=== PATIENT | male | born 1980 | race Caucasian/White ===

== ENCOUNTER 2024-03-15 22:22 | Emergency (ER) | payer SELFPAY ==
[2024-03-15] VITALS (10 sets, daily range): BP systolic 120–184; BP diastolic 64–110; PULSE 110–133; RESP 18–27; TEMP 36.8–37.3; O2SAT 92–99
--- NOTE | ~2024-03-15 | XR_ITS ---
EXAMINATION: XR chest 1V portable DATE: 03/15/2024 23:05 INDICATION: Dyspnea TECHNIQUE: frontal view of the chest was obtained. COMPARISON: None FINDINGS: The lungs are clear with no focal airspace opacities, pulmonary edema, pleural effusion or pneumothor ax. The cardiomediastinal silhouette is normal. Visualized bones and soft tissues are unremarkable. IMPRESSION: 1. No acute cardiopulmonary disease. Reviewed, dictated and finalized at location A.
--- NOTE | 2024-03-15 22:38 | ECG_ITS ---
Test Date: 2024-03-15 22:53:15 Measurements Intervals [place] Rate: 120 P: 59 PA: 166 QRS: 75 QRSD: 104 T: 37 QT: 348 QTc: 494 Interpretive Statements SINUS TACHYCARDIA NONSPECIFIC T-WAVE ABNORMALITY ABNORMAL RHYTHM ECG No previous ECG available for comparison Electronically Signed On 03-16-2024 13:02:54 CDT by Aidan Andrews M.D.
--- NOTE | 2024-03-15 22:40 | PC.NURSE ---
pt to ed with police presence. pt is in bilateral hand cuffs. pt is belligerent and uncooperative with staff. pt trying to harm himself, staff, ems, police. pt began yelling at staff, hitting, kicking, trying to elope. per edp dr. fishman pt to recieve 500mg IM of ketamine. pt received 500mg of ketamine IM by DARLENE Sandra in bilateral legs. pt began to wrestle with staff, ems, hospital security, and police. After ketamine administration this rn was able to obtain a new iv, blood work, ekg, straight catheterization per edp dr. fishman. pt began thrashing violent and attempting to hit himself in the head while screaming. Ativan 2mg IV push was verbal ordered by edp dr. fishman. pt began to become more comfortable and stopped yelling. bilateral handcuffs on wrists along with bilateral cuffs on ankles were applied by police. pt started shouting. pt then shaking head left to right. bilateral chest rise and fall were noted. pt heart rate continued to be in the sinus tach, pulse oxygen stayed within normal limits, respirations were wnl, blood pressure were hypertensive. edp dr. fishman aware.
[2024-03-15] MEDS: KETAMINE HCL (*CRX) 500 MG/10 ML VIAL IM (22:42)
--- NOTE | 2024-03-15 22:49 | PC.NURSE ---
Dr. Little at bedside. Pt being held to stretcher by two police officers, a cigarette packer, two security guards, and multiple nurses. Dr. Little gives verbal order for 500mg ketamine. Verified with multiple RN's in the room and given IM at 2242.
[2024-03-15] MEDS: SODIUM CHLORIDE 0.9% IV 3,000 ML 999 ML IV CONT (23:04)
[2024-03-15] MEDS: LORazepam INJ (*CRX) 2 MG/ML VIAL IV PUSH (23:11)
[2024-03-15 23:13] LABS: Basophils Absolute Auto 0.1 K/mm3 (0.0-0.1); Basophils Percent Auto 0.8 % (0.2-1.2); Eosinophils Absolute Auto 0.1 K/mm3 (0-0.3); Eosinophils Percent Auto 0.7 % (0-4.4); Hematocrit 44.3 % (42.0-52.0); Hemoglobin 15.6 g/dL (14.0-18.0); Immature Granulocyte Absolute 0.08 K/mm3 (0.00-0.031); Immature Granulocyte Percent A 0.7 % (0-0.5); Lymphocytes Absolute Auto 3.04 K/mm3 (0.9-3.2); Lymphocytes Percent Auto 25.4 % (18.3-44.2); Mean Corpuscular HGB Conc 35.2 g/dl (32-36); Mean Corpuscular Hemoglobin 32.4 pg (26-34); Mean Corpuscular Volume 91.9 fl (80-100); Mean Platelet Volume 9.1 fl (7.4-10.4); Monocytes Percent Auto 8.5 % (2.6-8.5); Neutrophils Absolute Auto 7.7 K/mm3 (1.3-6.7); Neutrophils Percent Auto 63.9 % (45.5-73.1); Platelet Count Result 345 k/mm3 (150-375); Red Blood Count 4.82 M/mm3 (4.6-6.20); Red Cell Distribution Width 12.8 % (11.5-14.5)
[2024-03-15 23:17] LABS: Appearance Urine Clear (Clear); Bacteria Urine None Seen /hpf; Bilirubin Urine Negative (Negative); Blood Urine Negative (Negative); Color Urine Yellow (Yellow); Glucose Urine UA Negative (Negative); Ketones Urine Trace mg/dL (Negative); Leukocyte Esterase Ur Negative LEU/UL (Negative); Nitrate Urine Negative (Negative); Non Pathogenic Casts 0-2; Protein Urine 2+ mg/dL (Negative); Specific Grav Ur 1.023 (1.001-1.035); Squamous Epithelial Cell Urine None Seen /hpf (Few); WBC Urine 0-5 /hpf (0-3); pH Urine 6.5 (5.0-9.0)
[2024-03-15 23:24] LABS: Lactic Acid Reflex 5.1 mmol/L (0.7-2.0)
[2024-03-15 23:26] LABS: Albumin Level 5.1 g/dL (3.5-5.1); Alkaline Phosphatase 80 U/L (38-126); Anion Gap 17 mmol/L (4-12); Aspartate Amino Transferase 56 U/L (17-59); Bilirubin,Total 0.6 mg/dL (0.2-1.3); Blood Urea Nitrogen 19 mg/dL (9-20); Calcium 9.6 mg/dL (8.4-10.2); Carbon Dioxide 19 mmol/L (22-30); Chloride 107 mmol/L (98-107); Creatine Kinase 128 U/L (55-170); Estimated CRCL calculation 101 ml/min; Estimated Glomerular Filt Rate > 60; Glucose 136 mg/dL (65-110); Lipase 165 U/L (23-300); Magnesium 2.1 mg/dL (1.6-2.3); Phosphorus 1.6 mg/dL (2.5-4.5); Potassium 3.8 mmol/L (3.4-5.0); Sodium 143 mmol/L (137-145)
[2024-03-15 23:30] LABS: Alanine Aminotransferase 68 U/L (6-50)
[2024-03-15 23:34] LABS: Troponin I < 0.012 ng/mL (0.000-0.034)
[2024-03-16] VITALS (7 sets, daily range): BP systolic 144–180; BP diastolic 94–118; PULSE 110–123; RESP 20–30; TEMP 36.8–37; O2SAT 94–98
[2024-03-16 00:10] LABS: Add Urine Microscopic? YES
[2024-03-16 00:15] LABS: Lactic Acid Reflex 1.8 mmol/L (0.7-2.0)
[2024-03-16 00:27] LABS: Amphetamine Screen Urine Negative (Negative); Barbiturate Screen Urine Negative (Negative); Benzodiazepines Screen Urine Negative (Negative); Cannabinoid Screen Urine Negative (Negative); Cocaine Screen Urine Negative (Negative); Methadone Screen Urine Negative (Negative); Opiate Screen Urine Negative (Negative); Phencyclidine Screen Urine Negative (Negative)
[2024-03-16 00:48] LABS: Ethanol < 10 mg/dL (<10)
--- NOTE | 2024-03-16 01:19 | PC.NURSE ---
per edp dr. fishman lab to re-run a urine drug screen and re- run an ethanol level.
[2024-03-16 01:25] LABS: Ethanol < 10 mg/dL (<10)
--- NOTE | 2024-03-16 01:36 | PC.NURSE ---
upon second catheterization pt is still belligerent. pt answering orientation questions incorrectly. pt ao x 1. pt still actively admitting to being intoxicated.
--- NOTE | 2024-03-16 01:40 | ECG_ITS ---
Test Date: 2024-03-16 01:11:12 Measurements Intervals [place] Rate: 117 P: 33 FL: 177 QRS: 62 QRSD: 90 T: 14 QT: 342 QTc: 478 Interpretive Statements SINUS TACHYCARDIA Nonspecific ST wave abnormalities Compared to ECG 03/15/2024 22:53:15 no change compared to prior EKG Electronically Signed On 03-16-2024 13:03:49 CDT by Aidan Andrews M.D.
[2024-03-16] MEDS: POTASSIUM/PHOSPHORUS/SODIUM 1.5 GM PACKET 1 PACKET PO (01:45)
--- NOTE | 2024-03-16 01:48 | ED.GENADULT ---
HPI - General Adult General Chief complaint: Shortness of Breath/Dyspnea Stated complaint: dyspnea Time Seen by Provider: 03/15/24 22:38 History of Present Illness HPI narrative: This is a 43-year-old male presenting in police custody for agitated behavior. The patient was at a wedding and was reportedly drinking. He had become aggressive with other guess the wedding in the police recalled. Patient became irate and got involved in physical altercation with police. While in the back of the police car in handcuffs he started to become diaphoretic red and yelling that he could not breathe. He was then brought to the hospital and had to be restrained by security staff due to aggressive and violent behavior. Related Data Allergies Allergy/AdvReac Type Severity Reaction Status Date / Time No Known Allergies Allergy Verified 03/15/24 22:26 Exam Narrative: APPEARANCE: patient is flushed diaphoretic, he is being restrained by for staff members. Head: atraumatic. EYES: EOMI, NOSE: Atraumatic NECK: Trachea midline RESPIRATORY: Tachypneic, clear lung sounds CARDIOVASCULAR: tachycardic, diaphoretic ABDOMINAL: Non-distended MUSCULOSKELETAl: No obvious deformities NEURO: Alert. Moving 4/4 extremities SKIN:: Warm, dry. Normal color PSYCHIATRIC: Enraged Course Vital Signs Vital signs: Vital Signs Pulse Rate 110 H 03/15/24 22:25 Respiratory Rate 18 03/15/24 22:25 Blood Pressure 171/103 H 03/15/24 22:25 Pulse Oximetry 97 03/15/24 22:25 Temperature 98.6 F 03/16/24 00:40 Pulse Rate 123 H 03/16/24 01:40 Respiratory Rate 22 H 03/16/24 01:40 Blood Pressure 176/112 H 03/16/24 01:40 Pulse Oximetry 98 03/16/24 01:40 Oxygen Delivery Room Air 03/15/24 22:26 Medical Decision Making [facility] Narrative Medical decision making narrative: -Course: 43-year-old male presenting in agitated delirium. Given IM ketamine for immediate sedation for protection of the patient and staff. the patient regained consciousness and was still verbally/physically aggressive. He was kept in handcuffs by police and given benzodiazepines. Patient required multiple rounds of sedatives for aggressive violent behavior. Patient's workup was negative for alcohol and drugs tested by urine drug screen. This was repeated as the patient admitted to drinking large amounts of alcohol tonight and his behavior was consistent with sympathomimetic toxidrome. Repeats still came back negative. This does full out synthetic drugs which do not show up on our UDS. Interestingly the repeat urine drug screen was negative for benzodiazepines which we administered to the patient on arrival. On re-evaluation the patient's vital signs has improved. He is now more calm. AOx3. Still slightly tachycardic but much improved.. Patient will be discharged into police custody. -DDX includes but is not limited to: Agitated delirium, alcohol intoxication, sympathomimetic overdose -Co-morbidities complicating care: history of cocaine and amphetamine abuse, alcohol abuse -Independent interpretation of studies: Labs reviewed chest x-ray normal Independent EKG interpretation: Rhythm [sinus], Rate [117], [place] -[normal], [place] -[normal], QRS [narrow], QTC [normal], T waves -[negative for concerning inversions], ST Segments - [Negative for concerning elevations] Final interpretations: Sinus tachycardia -Shared decision making / Disposition:Discharged into police custody Vital Signs Vital Signs: Vital Signs Pulse Rate 110 H 03/15/24 22:25 Respiratory Rate 18 03/15/24 22:25 Blood Pressure 171/103 H 03/15/24 22:25 Pulse Oximetry 97 03/15/24 22:25 Temperature 98.6 F 03/16/24 00:40 Pulse Rate 123 H 03/16/24 01:40 Respiratory Rate 22 H 03/16/24 01:40 Blood Pressure 176/112 H 03/16/24 01:40 Pulse Oximetry 98 03/16/24 01:40 Oxygen Delivery Room Air 03/15/24 22:26 Lab Data 03/15/24 23:02 03/15/24 23:02
[2024-03-16 01:59] LABS: Amphetamine Screen Urine Negative (Negative); Barbiturate Screen Urine Negative (Negative); Benzodiazepines Screen Urine Negative (Negative); Cannabinoid Screen Urine Negative (Negative); Cocaine Screen Urine Negative (Negative); Methadone Screen Urine Negative (Negative); Opiate Screen Urine Negative (Negative); Phencyclidine Screen Urine Negative (Negative)
[2024-03-16 02:08] LABS: Reflex Lactic Acid Yes or No Add Lactic
[2024-03-16 02:09] LABS: Troponin I < 0.012 ng/mL (0.000-0.034)
[2024-03-16] MEDS: LORazepam INJ (*CRX) 2 MG/ML VIAL IV PUSH (02:09)
[2024-03-16] MEDS: HALOPERIDOL LACTATE 5 MG/ML VIAL IV PUSH (02:09)
--- NOTE | 2024-03-16 02:13 | PC.NURSE ---
upon reassessment of patient. pt began to spit and became belligerent with staff, hospital security, and police officers. pt started screaming profanity. this rn educated and reorientated patient to setting and time. pt then continued to spit on staff. per edp dr. fishman 2mg of ativan and 5mg of halidol was ordered. this rn administered 2mg of ativan and 5mg of halidol was administered in patient. pt then tried to get out of bed. police and hospital security redirected patient back to bed where bilateral ankle cuffs were continued and x1 wrist cuff was still applied by PD. edp dr. fishman aware. pt vitals at this time were HR 119, RR of 26, o2 of 97 and blood pressure was unable to be obtained because patient ripping blood pressure cuff off and attempting to hit and spit on staff.
--- NOTE | 2024-03-16 02:33 | PC.NURSE ---
pt became aggressive with [place] [employer]. pt broke pulse ox. pt stated, you are not going to monitor me . pt has visible chest rise and fall. pt has good capillary refill at time of assessment.
== END 2024-03-16 02:48 ==
PROVIDERS: Emergency Provider Emergency Medicine
DX: R45.1 Restlessness and agitation (principal); R00.0 Tachycardia, unspecified; R94.31 Abnormal electrocardiogram [ECG] [EKG]
CPT/HCPCS: 36415; 71045; 80053; 80307; 81001; 82550; 83605; 83690; 83735; 84100; 84484; 85025; 93005; 96361; 96372; 96374; 96375; 99284; A9270; J1630; J2060; J7030